=== PATIENT | female | born 1995 | race Caucasian/White ===

== ENCOUNTER 2019-08-07 09:39 | Emergency (ER) | payer OTHER ==
[~2019-08-07] VITALS: Ht 162.6 cm; Wt 78.9 kg
[2019-08-07 10:02] VITALS: BP 107/76
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
[2019-08-07] MEDS ORDERED: ACETAMINOPHEN EXTRA STRENGTH 500 MG TAB PO ONE (10:15)
[2019-08-07 11:12] VITALS: BP 107/76
--- NOTE | 2019-08-07 11:12 | NUR ---
Patient discharged with v/s stable. Written and verbal after care instructions given and explained. Patient alert, oriented and verbalized understanding of instructions. Ambulatory with steady gait. All questions addressed prior to discharge. ID band removed. Patient advised to follow up with PMD. Rx of TAMIFLU, ZOFRAN given. Patient educated on indication of medication including possible reaction and side effects. Opportunity to ask questions provided and answered.
== END 2019-08-07 11:12 | disposition home or self-care (01) ==
LOC: MED 09:39
DX: R55 Syncope and collapse (principal); J11.1 Influenza due to unidentified influenza virus with other respiratory manifestations; R51 Headache
CPT/HCPCS: 99283